=== PATIENT | female | born 1980 | race Caucasian/White ===

== ENCOUNTER 2018-05-12 10:39 | Emergency (ER) | payer MEDICAID ==
[~2018-05-12] VITALS: Ht 157.5 cm; Wt 54.4 kg
[2018-05-12 10:39] VITALS: BP_SYST 123
[2018-05-12] MEDS ORDERED: NACL 0.9% 1,000 ML IV ONE (11:04)
[2018-05-12 11:19] LABS: BILIRUBIN,URINE 1+ (NEGATIVE); BLOOD, URINE 3+ (NEGATIVE); CLARITY/URINE CLEAR (CLEAR); COLOR,URINE YELLOW (YELLOW); GLUCOSE,URINE NEGATIVE (NEGATIVE); KETONES,URINE TRACE (NEGATIVE); LEUKOCYTE ESTERASE ,URINE NEGATIVE (NEGATIVE); NITRITE, URINE NEGATIVE (NEGATIVE); PH,URINE 5.5 (5.0-8.0); PROTEIN URINE 1+ (NEGATIVE); UROBILINOGEN,URINE 0.2 (0.2-1.0)
[2018-05-12 11:33] LABS: BACTERIA,URINE MODERATE /HPF (None Seen); MUCUS,URINE 2+ /LPF (None Seen); URINE AMORPHOUS URATE 1+ /HPF (None Seen)
[2018-05-12 11:40] LABS: BASOPHILS % (AUTO) 0.6 % (0.0-2.0); EOSINOPHILS % (AUTO) 0.3 % (0.0-4.0); HEMATOCRIT 37.6 % (36-48); LYMPHOCYTES # (AUTO) 1.2 K/uL (1.0-5.5); LYMPHOCYTES % (AUTO) 28.4 % (20.5-51.5); MEAN CORPUSCULAR HEMOGLOBIN 29 pg (27-31); MEAN CORPUSCULAR HGB CONC 35 % (32-36); MEAN CORPUSCULAR VOLUME 85 fL (79.0-98.0); MONOCYTES # (AUTO) 0.2 K/uL (0.0-1.0); MONOCYTES % (AUTO) 5.5 % (1.7-9.3); NEUTROPHILS # (AUTO) 2.7 K/uL (1.8-7.7); NEUTROPHILS % (AUTO) 65.2 % (40.0-70.0); PLATELET COUNT (AUTO) 186 K/uL (130-430); RED BLOOD CELL COUNT(AUTO) 4.43 MIL/uL (4.2-6.2); WHITE BLOOD COUNT (AUTO) 4.1 K/uL (4.8-10.8)
[2018-05-12 11:44] LABS: CALCIUM 8.8 mg/dL (8.4-11.0); CREATININE 0.79 mg/dL (0.55-1.30); POTASSIUM 3.6 mmol/L (3.5-5.1)
[2018-05-12 11:58] LABS: ALBUMIN 3.9 g/dL (3.4-4.8); TOTAL BILIRUBIN 0.6 mg/dL (0.0-1.0)
[2018-05-12 12:29] VITALS: BP_SYST 120
== END 2018-05-12 12:29 | disposition home or self-care (01) ==
LOC: SED 10:39
DX: O20.0 Threatened abortion (principal); O46.90 Antepartum hemorrhage, unspecified, unspecified trimester; O23.41 Unspecified infection of urinary tract in pregnancy, first trimester; R03.0 Elevated blood-pressure reading, without diagnosis of hypertension; Z3A.01 Less than 8 weeks gestation of pregnancy
CPT/HCPCS: 36415; 76830; 76857; 80053; 81000; 84702; 85025; 86901; 87086; 96360; 99285; J7030

== ENCOUNTER 2018-08-12 02:49 | Observation (INO) | payer MEDICAID ==
[~2018-08-12] VITALS: Ht 160 cm; Wt 59.0 kg
[2018-08-12 03:35] VITALS: BP_SYST 120
[2018-08-12] MEDS ORDERED: NACL 0.9% 1,000 ML IV ONE (05:30)
[2018-08-12] MEDS ORDERED: MORPHINE 2 MG/ML INJ. SYRINGE IVP ONE (05:30)
[2018-08-12] MEDS ORDERED: ONDANSETRON HCL 4 MG/2 ML VIAL ONE (06:11)
[2018-08-12] MEDS ORDERED: ONDANSETRON HCL 4 MG/2 ML VIAL IVP ONE (06:15)
[2018-08-12 06:38] LABS: BASOPHILS % (AUTO) 0.3 % (0.0-2.0); EOSINOPHILS % (AUTO) 0.2 % (0.0-4.0); HEMATOCRIT 43.2 % (36-48); HEMOGLOBIN 14.4 g/dL (12.0-16.0); LYMPHOCYTES # (AUTO) 0.8 K/uL (1.0-5.5); LYMPHOCYTES % (AUTO) 6.6 % (20.5-51.5); MEAN CORPUSCULAR HEMOGLOBIN 29 pg (27-31); MEAN CORPUSCULAR HGB CONC 33 % (32-36); MEAN CORPUSCULAR VOLUME 88 fL (79.0-98.0); MONOCYTES # (AUTO) 0.2 K/uL (0.0-1.0); MONOCYTES % (AUTO) 1.8 % (1.7-9.3); NEUTROPHILS # (AUTO) 11.9 K/uL (1.8-7.7); NEUTROPHILS % (AUTO) 91.1 % (40.0-70.0); PLATELET COUNT (AUTO) 275 K/uL (130-430); RED BLOOD CELL COUNT(AUTO) 4.93 MIL/uL (4.2-6.2); RED CELL DISTRIBUTION WIDTH 12.9 % (9.0-15.0); WHITE BLOOD COUNT (AUTO) 12.9 K/uL (4.8-10.8)
[2018-08-12 06:58] LABS: CALCIUM 9.4 mg/dL (8.4-11.0); CREATININE 0.78 mg/dL (0.55-1.30)
[2018-08-12 07:16] LABS: BILIRUBIN,URINE NEGATIVE (NEGATIVE); BLOOD, URINE 3+ (NEGATIVE); CLARITY/URINE CLOUDY (CLEAR); COLOR,URINE ORANGE (YELLOW); GLUCOSE,URINE NEGATIVE (NEGATIVE); KETONES,URINE TRACE (NEGATIVE); LEUKOCYTE ESTERASE ,URINE NEGATIVE (NEGATIVE); NITRITE, URINE POSITIVE (NEGATIVE); PROTEIN URINE 2+ (NEGATIVE)
[2018-08-12 07:23] LABS: ALBUMIN 3.9 g/dL (3.4-4.8); TOTAL BILIRUBIN 0.3 mg/dL (0.0-1.0)
[2018-08-12 07:27] LABS: BACTERIA,URINE FEW /HPF (None Seen); MUCUS,URINE 1+ /LPF (None Seen); RBC,URINE >100 /HPF (0-3)
[2018-08-12] MEDS ORDERED: cefTRIAXone 1 GM IVPB PREMIX 50 ML IV ONE (08:00)
[2018-08-12] MEDS: LR 1,000 ML IV SCH ×2 (09:26→12:34)
[2018-08-12] MEDS ORDERED: MIDAZOLAM HCL 5 MG/5 ML VIAL IVP ONE (09:40)
[2018-08-12] MEDS ORDERED: fentaNYL CITRATE/PF 100 MCG/2 ML AMP IVP ONE (09:40)
[2018-08-12] MEDS ORDERED: BUPIVACAINE /PF 0.5% 30 ML VIAL INJ ONE (09:40)
[2018-08-12] MEDS ORDERED: GLYCOPYRROLATE 0.2 MG/ML VIAL IJ ONE (09:40)
[2018-08-12] MEDS ORDERED: PROPOFOL 200MG/ 20ML VIAL (DIPRIVAN) IV ONE (09:40)
[2018-08-12] MEDS ORDERED: LIDOCAINE 2%, 20 ML MDV INJ ONE (09:40)
[2018-08-12] MEDS ORDERED: LR 1,000 ML IV.SOLN IV ONE (09:40)
[2018-08-12] MEDS ORDERED: KETOROLAC TROMETHAMINE 30 MG VIAL IVP ONE (09:40)
[2018-08-12] MEDS ORDERED: NS IRRIG SOLN 1000 ML IR ONE (09:40)
[2018-08-12] MEDS ORDERED: SEVOFLURANE 15 MIN GAS INH ONE (09:40)
[2018-08-12] MEDS ORDERED: NEOSTIGMINE METHYLSULFATE 1 MG/ML, 10 ML VIAL IVP ONE (09:40)
[2018-08-12] MEDS ORDERED: ROCURONIUM BROMIDE 10 MG/ML (ZEMURON) IV ONE (09:40)
[2018-08-12] MEDS ORDERED: ONDANSETRON HCL 4 MG/2 ML VIAL IVP PRN ×2 (10:30→11:15)
[2018-08-12] MEDS ORDERED: KETOROLAC TROMETHAMINE 30 MG VIAL IVP PRN (10:30)
[2018-08-12] MEDS ORDERED: fentaNYL CITRATE/PF 100 MCG/2 ML AMP IVP PRN ×2 (10:30)
[2018-08-12] MEDS ORDERED: MORPHINE SULFATE 10 MG/ML VIAL IVP PRN (11:15)
[2018-08-12] MEDS ORDERED: HYDROcodone/ACETAMIN 5-325 MG TAB (NORCO/ VICODIN) PO PRN ×2 (11:15)
[2018-08-12 12:08] VITALS: BP_SYST 152
[2018-08-12] MEDS ORDERED: PRENATAL WITH IRON PO (12:13)
[2018-08-12] MEDS ORDERED: MORPHINE 4 MG/ML INJ. SYRINGE IVP PRN (16:02)
[2018-08-12 16:23] VITALS: BP_SYST 130
== END 2018-08-12 17:05 | disposition home or self-care (01) ==
LOC: SED 02:49 → INTOOBSV 08:37 → SMU 08:37
PROVIDERS: ADMIT Obstetrics & Gynecology; ATTEND Obstetrics & Gynecology
DX: O00.90 Unspecified ectopic pregnancy without intrauterine pregnancy (principal); O00.202 Left ovarian pregnancy without intrauterine pregnancy; N83.202 Unspecified ovarian cyst, left side; O34.81 Maternal care for other abnormalities of pelvic organs, first trimester; Z3A.01 Less than 8 weeks gestation of pregnancy
CPT/HCPCS: 36415; 58662; 59150; 76801; 76817; 80053; 81000; 84702; 85025; 87086; 88305; 96365; 96375; 99285; C1727; G0378; J0696; J1885; J2001; J2250; J2270; J2405; J2704; J2710; J3010; J3490 ×2; J7030; J7120; 96361; 96374

== ENCOUNTER 2019-09-13 21:40 | Emergency (ER) | payer MEDICAID ==
[~2019-09-13] VITALS: Ht 157.5 cm; Wt 59.0 kg
[~2019-09-13 21:40] MED LIST: PRENATAL WITH IRON PO
[2019-09-13 21:45] VITALS: BP_SYST 185
--- NOTE | 2019-09-13 21:50 | NUR ---
Placed in room 8 . Placed on child monitor, blood pressure machine and pulse oximeter. To gown for exam. Side rails up. Report given to ELEAZAR SENA.
--- NOTE | 2019-09-13 22:00 | NUR ---
Junie duran in ED - 09/13/19 at 2213 by SDEDPR SATURNINO Marie at bedside examining patient.
--- NOTE | 2019-09-13 22:21 | NUR ---
Patient complains of pressure to back of head and high blood pressure of 159/111 about 30 minutes ago. Pt states she felt weird as if she felt her blood pumping through her body and took her blood pressure. Pt normally has BP of 120's systolically. Pt denies N/V, SOB, chest pain. No other injuries/complaints per patient or noted.
--- NOTE | 2019-09-13 22:40 | NUR ---
ER at bedside examining patient.
--- NOTE | 2019-09-13 22:41 | NUR ---
Junie duran in EDM - 09/13/19 at 2242 by [email or web address] SATURNINO Teran at bedside examining patient.
[2019-09-13] MEDS ORDERED: LISINOPRIL 10 MG TABLET (PRINIVIL) PO ONE (23:00)
[2019-09-14 00:12] VITALS: BP_SYST 143
--- NOTE | 2019-09-14 00:12 | NUR ---
Patient given written and verbal discharge instructions and verbalizes understanding. ER MD discussed with patient the results and treatment provided. Patient in stable condition. ID arm band removed. Rx of Lisinopril/Hydrochlorothiazide given. Patient educated on pain management and to follow up with PMD. Pain Scale 0. Opportunity for questions provided and answered. Medication side effect fact sheet provided.
== END 2019-09-14 00:12 | disposition home or self-care (01) ==
LOC: SED 21:40
DX: I10 Essential (primary) hypertension (principal); Z79.899 Other long term (current) drug therapy
CPT/HCPCS: 99283

== ENCOUNTER 2020-04-24 10:55 | Emergency (ER) | payer MEDICAID ==
[~2020-04-24] VITALS: Ht 157.5 cm; Wt 63.0 kg
[2020-04-24 11:00] VITALS: BP_SYST 125
[2020-04-24 12:35] VITALS: BP_SYST 121
== END 2020-04-24 12:32 | disposition home or self-care (01) ==
LOC: SED 10:55
DX: S60.111A Contusion of right thumb with damage to nail, initial encounter (principal); R03.0 Elevated blood-pressure reading, without diagnosis of hypertension; W23.0XXA Caught, crushed, jammed, or pinched between moving objects, initial encounter; Y93.89 Activity, other specified; Y92.89 Other specified places as the place of occurrence of the external cause; Y99.8 Other external cause status
CPT/HCPCS: 73140-TC; 99284

== ENCOUNTER 2020-11-13 10:23 | Emergency (ER) | payer MEDICAID ==
[~2020-11-13] VITALS: Ht 157.5 cm; Wt 62.6 kg
[2020-11-13 10:36] VITALS: BP_SYST 140
[2020-11-13 11:12] LABS: BASOPHILS # (AUTO) 0.1 K/uL (0.0-0.2); BASOPHILS % (AUTO) 1.4 % (0.0-2.0); HEMATOCRIT 42.2 % (36-48); HEMOGLOBIN 14.7 g/dL (12.0-16.0); LYMPHOCYTES % (AUTO) 27.1 % (20.5-51.5); MEAN CORPUSCULAR HEMOGLOBIN 30 pg (27-31); MEAN CORPUSCULAR HGB CONC 35 % (32-36); MEAN CORPUSCULAR VOLUME 88 fL (79.0-98.0); MONOCYTES # (AUTO) 0.2 K/uL (0.0-1.0); MONOCYTES % (AUTO) 5.4 % (1.7-9.3); NEUTROPHILS # (AUTO) 2.4 K/uL (1.8-7.7); NEUTROPHILS % (AUTO) 65.1 % (40.0-70.0); PLATELET COUNT (AUTO) 194 K/uL (130-430); RED BLOOD CELL COUNT(AUTO) 4.82 MIL/uL (4.2-6.2); RED CELL DISTRIBUTION WIDTH 12.8 % (9.0-15.0); WHITE BLOOD COUNT (AUTO) 3.7 K/uL (4.8-10.8)
[2020-11-13 11:22] LABS: ANION GAP 8 (5-15); CALCIUM 9.2 mg/dL (8.4-11.0); CHLORIDE 105 mmol/L (98-107); CREATININE 0.95 mg/dL (0.55-1.30); GFR AFRICAN AMERICAN 84 mL/min (>90); GLUCOSE 91 mg/dL (70-99); POTASSIUM 4.2 mmol/L (3.5-5.1); SODIUM SERUM 141 mmol/L (136-145); UREA NITROGEN, BLOOD 13 mg/dL (8-21)
[2020-11-13] MEDS ORDERED: ASPIRIN 325 MG TABLET PO ONE (12:45)
[2020-11-13 14:24] VITALS: BP_SYST 125
== END 2020-11-13 14:23 | disposition home or self-care (01) ==
LOC: SED 10:23
DX: I10 Essential (primary) hypertension (principal)
CPT/HCPCS: 36415; 71045; 80048; 81025; 84484; 85025; 93005; 99285

== ENCOUNTER 2022-12-26 14:38 | Emergency (ER) | payer MEDICAID ==
[~2022-12-26] VITALS: Ht 160 cm; Wt 63.5 kg
--- NOTE | 2022-12-26 14:38 | NUR ---
Patient triaged and placed in waiting room. VSS and patient appears in no acute distress at this time. Accompanied by SELF, awaiting available bed, and MD notified of need for MSE.
[2022-12-26 14:40] VITALS: BP_SYST 115
--- NOTE | 2022-12-26 14:40 | NUR ---
EKG performed at by ALEYDA. Physician given copy of EKG for review.
[2022-12-26] MEDS ORDERED: ASPIRIN 81 MG TAB.CHEW PO ONE (15:30)
[2022-12-26 16:35] LABS: BASOPHILS % (AUTO) 0.2 % (0.0-2.0); EOSINOPHILS # (AUTO) 0.1 K/uL (0.0-0.4); EOSINOPHILS % (AUTO) 1.3 % (0.0-4.0); HEMATOCRIT 38.6 % (36-48); HEMOGLOBIN 12.8 g/dL (12.0-16.0); LYMPHOCYTES # (AUTO) 1.2 K/uL (1.0-5.5); LYMPHOCYTES % (AUTO) 24.4 % (20.5-51.5); MEAN CORPUSCULAR HEMOGLOBIN 27 pg (27-31); MEAN CORPUSCULAR HGB CONC 33 % (32-36); MEAN CORPUSCULAR VOLUME 81 fL (79.0-98.0); MONOCYTES # (AUTO) 0.2 K/uL (0.0-1.0); MONOCYTES % (AUTO) 4.4 % (1.7-9.3); NEUTROPHILS # (AUTO) 3.4 K/uL (1.8-7.7); NEUTROPHILS % (AUTO) 69.7 % (40.0-70.0); PLATELET COUNT (AUTO) 264 K/uL (130-430); RED BLOOD CELL COUNT(AUTO) 4.78 MIL/uL (4.2-6.2); RED CELL DISTRIBUTION WIDTH 15.6 % (9.0-15.0); WHITE BLOOD COUNT (AUTO) 4.9 K/uL (4.8-10.8)
[2022-12-26 16:42] LABS: ALANINE AMINOTRANSFERASE 28 U/L (12-78); ANION GAP 7 (5-15); ASPARTATE AMINOTRANSFERASE 18 U/L (10-37); CHLORIDE 104 mmol/L (98-107); CREATININE 0.92 mg/dL (0.55-1.30); GFR AFRICAN AMERICAN 87 mL/min (>90); GLUCOSE 102 mg/dL (70-99); TOTAL BILIRUBIN 0.3 mg/dL (0.0-1.0); UREA NITROGEN, BLOOD 12 mg/dL (8-21)
--- NOTE | 2022-12-26 16:50 | NUR ---
ER at bedside examining patient.
--- NOTE | 2022-12-26 17:15 | NUR ---
Patient given written and verbal discharge instructions and verbalizes understanding. ER MD discussed with patient the results and treatment provided. Patient in stable condition. ID arm band removed. Patient educated on pain management and to follow up with PMD. Opportunity for questions provided and answered. Medication side effect fact sheet provided.
[2022-12-26 17:26] VITALS: BP_SYST 115
== END 2022-12-26 17:26 | disposition home or self-care (01) ==
LOC: SED 14:38
DX: R07.9 Chest pain, unspecified (principal); Z79.899 Other long term (current) drug therapy
CPT/HCPCS: 36415; 71045; 80053; 83880; 84484; 85025; 93005; 99285

== ENCOUNTER 2024-03-12 18:02 | Emergency (ER) | payer MEDICAID ==
[~2024-03-12] VITALS: Ht 157.5 cm; Wt 63.5 kg
[2024-03-12 18:29] VITALS: BP_SYST 144; PULSE 84; RESP 17; TEMP 98.3; O2SAT 98
[2024-03-12 19:00] VITALS: BP_SYST 144; PULSE 84; RESP 17; TEMP 98.3; O2SAT 98
== END 2024-03-12 19:00 | disposition home or self-care (01) ==
LOC: SED 18:02
DX: Z00.00 Encounter for general adult medical examination without abnormal findings (principal)
CPT/HCPCS: 87081; 99283